=== PATIENT | male | born 1955 | race African-American/Black ===

== ENCOUNTER 2023-10-29 17:08 | Inpatient (IN) | payer OTHER ==
[2023-10-29] MEDS ORDERED: ACETAMINOPHEN INJECTION 100 ML IVPB ONE (18:10)
[2023-10-29] MEDS: SODIUM CHLORIDE 0.9% 500 ML INFUS.BAG IV ONE (18:27)
[2023-10-29] MEDS: ACETAMINOPHEN 1000 MG/100 ML BAG IVPB ONE (18:27)
[2023-10-29 18:34] LABS: INR 1.38 (0.83-1.09); PROTHROMBIN TIME (PATIENT) 15.6 SEC (9.7-13.0)
[2023-10-29 18:37] LABS: ACTIVATED PTT 31.7 SECONDS (25.2-36.5); HEMATOCRIT 34.7 % (35.4-49); HEMOGLOBIN 11.5 G/dL (11.7-16.9); MCH 30.6 pg (25.7-33.7); MEAN CELL VOLUME 92.6 fl (80-96); PLATELET COUNT 425.7 10^3/uL (134-434); RBC 3.75 10^6/uL (4.00-5.60); RDW 13.8 % (11.9-15.9); WHITE BLOOD COUNT 17.6 10^3/uL (4.0-10.8)
[2023-10-29 18:49] LABS: ALBUMIN 3.7 g/dl (3.4-5.0); ALK PHOS 77 U/L (45-117); ANION GAP 12 mmol/L (4-13); BILIRUBIN,TOTAL 0.4 mg/dl (0.2-1); CALCIUM 10.8 mg/dl (8.5-10.1); CHLORIDE 92 mmol/L (98-107); CO2 27 mmol/L (21-32); CREATININE 1.2 mg/dl (0.6-1.3); GLUCOSE,RANDOM 116 mg/dl (74-106); MAGNESIUM 2.1 mg/dL (1.8-2.4); PHOSPHOROUS 4.5 (2.5-4.9); POTASSIUM 4.3 mmol/L (3.5-5.1); SGOT/AST 71 U/L (15-37); SGPT/ALT 115 U/L (7-52); SODIUM 131 mmol/L (136-145); TOT PROT 7.2 g/dl (6.4-8.2)
[2023-10-29 18:53] LABS: PLATELET ESTIMATE SLT INCREASE
[2023-10-29] MEDS ORDERED: PIPERACILLIN/TAZOBACTAM 3.375 GM VIAL IVPB ONE (19:49)
[2023-10-29] MEDS: PIPERACILLIN/TAZOB 3.375 GM 3.375 GM in DEXTROSE 5%-WATER - 50 ML IVPB ONE (20:10)
[2023-10-30] MEDS: ACETAMINOPHEN 1000 MG/100 ML BAG IVPB ONE (04:38)
[2023-10-30 05:45] VITALS: BMI 20.5
[2023-10-30 07:55] LABS: BASO % 0.6 % (0-2.0); EOS % 0.1 % (0-4.5); HEMATOCRIT 30.3 % (35.4-49); HEMOGLOBIN 10.4 GM/dL (11.7-16.9); LYMPH % 10.7 % (8-40); MCH 30.7 pg (25.7-33.7); MCHC 34.2 g/dl (32.0-35.9); MEAN CELL VOLUME 89.7 fl (80-96); MEAN PLT VOLUME 6.8 fl (7.5-11.1); MONO % 7.4 % (3.8-10.2); NEUT % 81.2 % (42.8-82.8); PLATELET COUNT 449 10^3/uL (134-434); RBC 3.38 M/mm3 (4.00-5.60); RDW 13.4 % (11.9-15.9); WHITE BLOOD COUNT 15.7 K/mm3 (4.0-10.0)
[2023-10-30 07:58] LABS: POTASSIUM 4.5 mmol/L (3.5-5.1)
[2023-10-30 08:04] LABS: ALBUMIN 2.3 g/dl (3.4-5.0); BLOOD UREA NITROGEN 15.1 mg/dL (7-18); MAGNESIUM 1.9 mg/dL (1.8-2.4)
[2023-10-30 08:07] LABS: PHOSPHOROUS 4.3 mg/dL (2.5-4.9)
[2023-10-30 08:08] LABS: BILIRUBIN,TOTAL 0.4 mg/dL (0.2-1); TOT PROT 6.5 g/dl (6.4-8.2)
[2023-10-30] MEDS: INSULIN ASPART SLIDING SCALE (NOVOLOG) 1 VIAL SQ SCH (08:22)
[2023-10-30 08:32] LABS: RETICULOCYTES 0.76 % (0.5-1.5)
[2023-10-30] MEDS: SODIUM CHLORIDE 1,000 ML IV SCH (10:18)
[2023-10-30] MEDS: PIPERACILLIN/TAZOB 3.375 GM 3.375 GM in DEXTROSE 5%-WATER - 50 ML IVPB SCH (12:03)
[2023-10-30] MEDS ORDERED: morphine CARPU-JECT 2 MG/1 ML DISP.SYRIN IVPUSH PRN (13:35)
[2023-10-30] MEDS: PIPERACILLIN/TAZOB 4.5 GM 4.5 GM in DEXTROSE 5%-WATER 100 ML IVPB SCH (17:36)
[2023-10-31 08:57] LABS: BASO % 0.3 % (0-2.0); EOS % 0.1 % (0-4.5); HEMATOCRIT 30.6 % (35.4-49); HEMOGLOBIN 10.3 GM/dL (11.7-16.9); LYMPH % 9.2 % (8-40); MCH 29.9 pg (25.7-33.7); MCHC 33.6 g/dl (32.0-35.9); MEAN CELL VOLUME 89.2 fl (80-96); MEAN PLT VOLUME 6.6 fl (7.5-11.1); MONO % 8.5 % (3.8-10.2); NEUT % 81.9 % (42.8-82.8); PLATELET COUNT 487 10^3/uL (134-434); RBC 3.43 M/mm3 (4.00-5.60); RDW 13.5 % (11.9-15.9)
[2023-10-31 09:02] LABS: INR 1.47 (0.83-1.09); PROTHROMBIN TIME (PATIENT) 16.7 SEC (9.7-13.0)
[2023-10-31 09:03] LABS: ACTIVATED PTT 31.1 SECONDS (25.2-36.5)
[2023-10-31 09:12] LABS: POTASSIUM 4.2 mmol/L (3.5-5.1)
[2023-10-31 09:15] LABS: ALBUMIN 2.1 g/dl (3.4-5.0); CALCIUM 9.2 mg/dL (8.5-10.1)
[2023-10-31 09:16] LABS: BLOOD UREA NITROGEN 10.9 mg/dL (7-18); MAGNESIUM 1.5 mg/dL (1.8-2.4)
[2023-10-31 09:19] LABS: CREATININE 0.9 mg/dL (0.55-1.3); PHOSPHOROUS 3.5 mg/dL (2.5-4.9)
[2023-10-31 09:20] LABS: BILIRUBIN,TOTAL 0.5 mg/dL (0.2-1)
[2023-10-31] MEDS: KETOROLAC TROMETHAMINE 15 MG/ML VIAL IVPUSH ONE (09:23)
[2023-10-31] MEDS: SODIUM CHLORIDE 1,000 ML IV STA (09:26)
[2023-10-31] MEDS: ACETAMINOPHEN 1000 MG/100 ML BAG IVPB PRN (09:49)
[2023-10-31] MEDS ORDERED: SODIUM CHLORIDE 1,000 ML IV SCH (11:15)
[2023-10-31] MEDS: DEXTROSE 5%-NORMAL SALINE 1,000 ML IV SCH (18:44)
[2023-11-01 09:42] LABS: HEMATOCRIT 29.6 % (35.4-49); HEMOGLOBIN 9.9 GM/dL (11.7-16.9); MCH 29.9 pg (25.7-33.7); MCHC 33.5 g/dl (32.0-35.9); MEAN PLT VOLUME 6.7 fl (7.5-11.1); PLATELET COUNT 475 10^3/uL (134-434); RBC 3.33 M/mm3 (4.00-5.60); RDW 13.6 % (11.9-15.9); WHITE BLOOD COUNT 13.6 K/mm3 (4.0-10.0)
[2023-11-01 10:11] LABS: POTASSIUM 3.8 mmol/L (3.5-5.1)
[2023-11-01 10:13] LABS: ALBUMIN 1.8 g/dl (3.4-5.0); CALCIUM 8.9 mg/dL (8.5-10.1)
[2023-11-01 10:14] LABS: BLOOD UREA NITROGEN 7.5 mg/dL (7-18)
[2023-11-01 10:17] LABS: CREATININE 0.8 mg/dL (0.55-1.3)
[2023-11-01 10:18] LABS: BILIRUBIN,TOTAL 0.3 mg/dL (0.2-1); TOT PROT 5.5 g/dl (6.4-8.2)
[2023-11-02] MEDS: ACETAMINOPHEN 1000 MG/100 ML BAG IVPB PRN (09:42)
[2023-11-02 09:45] LABS: HEMATOCRIT 31.8 % (35.4-49); HEMOGLOBIN 10.9 GM/dL (11.7-16.9); MCH 30.8 pg (25.7-33.7); MCHC 34.2 g/dl (32.0-35.9); MEAN CELL VOLUME 89.9 fl (80-96); MEAN PLT VOLUME 6.8 fl (7.5-11.1); PLATELET COUNT 505 10^3/uL (134-434); RBC 3.54 M/mm3 (4.00-5.60); RDW 13.7 % (11.9-15.9); WHITE BLOOD COUNT 10.8 K/mm3 (4.0-10.0)
[2023-11-02 09:48] LABS: BASO % 0.6 % (0-2.0); EOS % 0.9 % (0-4.5); HEMATOCRIT 31.9 % (35.4-49); HEMOGLOBIN 10.8 GM/dL (11.7-16.9); LYMPH % 19.8 % (8-40); MCH 30.2 pg (25.7-33.7); MCHC 33.8 g/dl (32.0-35.9); MEAN CELL VOLUME 89.4 fl (80-96); MEAN PLT VOLUME 6.6 fl (7.5-11.1); MONO % 6.9 % (3.8-10.2); NEUT % 71.8 % (42.8-82.8); PLATELET COUNT 491 10^3/uL (134-434); RBC 3.57 M/mm3 (4.00-5.60); RDW 13.7 % (11.9-15.9)
[2023-11-02 10:38] LABS: ALBUMIN 1.9 g/dl (3.4-5.0)
[2023-11-02 10:39] LABS: MAGNESIUM 1.7 mg/dL (1.8-2.4)
[2023-11-02 10:42] LABS: CREATININE 0.7 mg/dL (0.55-1.3); ERYTHROCYTE SEDIMENTATION RATE 107 mm/hr (0-20); PHOSPHOROUS 2.2 mg/dL (2.5-4.9)
[2023-11-02 10:43] LABS: BILIRUBIN,TOTAL 0.4 mg/dL (0.2-1); TOT PROT 5.8 g/dl (6.4-8.2)
[2023-11-02 10:45] LABS: BLOOD UREA NITROGEN 3.7 mg/dL (7-18)
[2023-11-02] MEDS: NAPH,MB-DB/K PH,MBDB POWDER PACKET PO ONE (17:33)
[2023-11-02] MEDS: MAGNESIUM SULF 50% (8.12 MEQ/2 ML-1 GM VIAL) IVPB ONE (17:33)
[2023-11-02 22:47] VITALS: RESP 20
[2023-11-03 06:30] VITALS: BP 139/68; PULSE 58; TEMP 98.2
[2023-11-03] MEDS: CEFTRIAXONE 1 GM in DEXTROSE 5%-WATER - 50 ML IVPB ONE (09:31)
[2023-11-03 10:09] LABS: BASO % 0.8 % (0-2.0); EOS % 1.1 % (0-4.5); HEMATOCRIT 28.6 % (35.4-49); HEMOGLOBIN 9.6 GM/dL (11.7-16.9); LYMPH % 24.6 % (8-40); MCHC 33.6 g/dl (32.0-35.9); MEAN CELL VOLUME 89.4 fl (80-96); MEAN PLT VOLUME 6.5 fl (7.5-11.1); MONO % 6.4 % (3.8-10.2); NEUT % 67.1 % (42.8-82.8); PLATELET COUNT 503 10^3/uL (134-434); RDW 13.8 % (11.9-15.9); WHITE BLOOD COUNT 7.9 K/mm3 (4.0-10.0)
[2023-11-03 10:30] LABS: POTASSIUM 3.9 mmol/L (3.5-5.1)
[2023-11-03 10:33] LABS: CALCIUM 8.5 mg/dL (8.5-10.1)
[2023-11-03 10:34] LABS: ALBUMIN 1.8 g/dl (3.4-5.0); BLOOD UREA NITROGEN 3.6 mg/dL (7-18); MAGNESIUM 1.8 mg/dL (1.8-2.4)
[2023-11-03 10:37] LABS: CREATININE 0.7 mg/dL (0.55-1.3); PHOSPHOROUS 2.5 mg/dL (2.5-4.9)
[2023-11-03 10:40] LABS: BILIRUBIN,TOTAL 0.3 mg/dL (0.2-1); TOT PROT 5.3 g/dl (6.4-8.2)
== END 2023-11-03 17:11 | disposition home or self-care (01) | DRG 871 ==
LOC: FER 17:08 → J8W 10-30 03:20
PROVIDERS: ADMIT Internal Medicine; ATTEND Internal Medicine
PROC: 0W9G30Z Drainage of Peritoneal Cavity with Drainage Device, Percutaneous Approach (ICD-10-PCS; principal; 2023-10-31)
PROC: 02HV33Z Insertion of Infusion Device into Superior Vena Cava, Percutaneous Approach (ICD-10-PCS; 2023-11-03)
PROC: B548ZZA Ultrasonography of Superior Vena Cava, Guidance (ICD-10-PCS; 2023-11-03)
DX: A41.9 Sepsis, unspecified organism (principal); K65.1 Peritoneal abscess; I10 Essential (primary) hypertension; E11.9 Type 2 diabetes mellitus without complications; D64.9 Anemia, unspecified; E83.52 Hypercalcemia; E86.0 Dehydration; Z79.84 Long term (current) use of oral hypoglycemic drugs
CPT/HCPCS: 0241U-QW; 36415; 36569; 49406; 71045-TC-FY; 74177-TC; 80053; 81003; 82378; 82728; 82962; 83540; 83550; 83605; 83690; 83735; 84100; 84466; 84484; 85025; 85027; 85045; 85610; 85651; 85730; 86140; 86850; 86870; 86880; 86900; 86901; 86902; 87040; 87070; 87086; 87186; 87205; 93005; 97116-GP; 97161-GP; 99285-25; J0131; Q9967

== ENCOUNTER 2023-11-04 09:24 | Day surgery (SDC) | payer OTHER ==
[2023-11-04] MEDS: CEFTRIAXONE 2 GM in DEXTROSE 5%-WATER 100 ML IVPB ONE (11:40)
[2023-11-04 12:21] VITALS: BP 107/56; PULSE 75; RESP 19; TEMP 97.8
== END 2023-11-04 12:15 | disposition home or self-care (01) ==
LOC: FINFUSION 09:24 → FM/S 11:06 → FINFUSION 12:15
PROVIDERS: ATTEND Internal Medicine Infectious Disease
DX: K65.1 Peritoneal abscess (principal)
CPT/HCPCS: 96365

== ENCOUNTER 2023-11-05 11:16 | Day surgery (SDC) | payer OTHER ==
[2023-11-05] MEDS: CEFTRIAXONE 2 GM in DEXTROSE 5%-WATER 100 ML IVPB ONE (11:45)
[2023-11-05 12:48] VITALS: BP 110/57; PULSE 80; RESP 17; TEMP 97.7
== END 2023-11-05 12:25 | disposition home or self-care (01) ==
LOC: FINFUSION 11:16 → FM/S 11:17 → FINFUSION 12:25
PROVIDERS: ATTEND Internal Medicine Infectious Disease
DX: K65.1 Peritoneal abscess (principal)
CPT/HCPCS: 96365

== ENCOUNTER 2023-11-06 10:29 | Day surgery (SDC) | payer OTHER ==
[2023-11-06] MEDS: CEFTRIAXONE 2 GM in SODIUM CHLORIDE 100 ML IVPB SCH (10:57)
[2023-11-06 11:32] VITALS: BP 98/53; PULSE 79; RESP 14; TEMP 98.2
== END 2023-11-06 11:37 | disposition home or self-care (01) ==
LOC: FINFUSION 10:29 → FM/S 10:31 → FINFUSION 11:37
PROVIDERS: ATTEND Internal Medicine Infectious Disease
DX: K65.1 Peritoneal abscess (principal)
CPT/HCPCS: 96365; 96366

== ENCOUNTER 2023-11-07 10:54 | Day surgery (SDC) | payer OTHER ==
[2023-11-07] MEDS: CEFTRIAXONE 2 GM in DEXTROSE 5%-WATER 100 ML IVPB ONE (11:15)
[2023-11-07 12:04] VITALS: BP 99/58; PULSE 72; RESP 14; TEMP 97.3
== END 2023-11-07 12:15 | disposition home or self-care (01) ==
LOC: FINFUSION 10:54 → FM/S 10:54 → FINFUSION 12:15
PROVIDERS: ATTEND Internal Medicine Infectious Disease
DX: K65.1 Peritoneal abscess (principal)
CPT/HCPCS: 96365

== ENCOUNTER 2023-11-08 11:28 | Day surgery (SDC) | payer OTHER ==
[2023-11-08 11:38] VITALS: RESP 16; TEMP 98.1
[2023-11-08] MEDS: CEFTRIAXONE 2 GM in SODIUM CHLORIDE 100 ML IVPB ONE (11:49)
[2023-11-08 12:43] VITALS: BP 112/62; PULSE 86
== END 2023-11-08 12:45 | disposition home or self-care (01) ==
LOC: FINFUSION 11:28 → FM/S 11:30 → FINFUSION 12:45
PROVIDERS: ATTEND Internal Medicine Infectious Disease
DX: K65.1 Peritoneal abscess (principal)
CPT/HCPCS: 96365

== ENCOUNTER 2023-11-09 10:46 | Day surgery (SDC) | payer OTHER ==
[2023-11-09] MEDS: CEFTRIAXONE 2 GM in SODIUM CHLORIDE 100 ML IVPB ONE (11:11)
[2023-11-09 11:48] VITALS: BP 121/68; PULSE 75; RESP 19; TEMP 97.5
== END 2023-11-09 11:49 | disposition home or self-care (01) ==
LOC: FINFUSION 10:46 → FM/S 10:49 → FINFUSION 11:49
PROVIDERS: ATTEND Internal Medicine Infectious Disease
DX: K65.1 Peritoneal abscess (principal)
CPT/HCPCS: 96365

== ENCOUNTER 2023-11-10 10:42 | Day surgery (SDC) | payer OTHER ==
[2023-11-10] MEDS: CEFTRIAXONE 2 GM in SODIUM CHLORIDE 100 ML IVPB ONE (11:02)
[2023-11-10 11:59] VITALS: BP 124/76; PULSE 70; RESP 16; TEMP 98.2
== END 2023-11-10 12:21 | disposition home or self-care (01) ==
LOC: FINFUSION 10:42 → FM/S 10:44 → FINFUSION 12:21
PROVIDERS: ATTEND Internal Medicine Infectious Disease
DX: K65.1 Peritoneal abscess (principal)
CPT/HCPCS: 96365